=== PATIENT | male | born 1950 | race Caucasian/White ===

== ENCOUNTER 2020-09-20 12:00 | Emergency (ER) | payer MEDICARE ==
--- NOTE | 2020-09-20 12:34 | ER Document Report ---
ED Medical Screen (RME) - General Chief Complaint: Rectal Bleeding Stated Complaint: BLOOD IN STOOL,LIGHTHEADED Time Seen by Provider: 09/20/20 12:22 - HPI Notes: 09/20/20 12:32 70-year-old male who is visiting from [place] to the area presents to the emergency room for concerns of having 4 episodes of bloody stool that started today. Patient reports that his first bowel movement had a tiny bit of blood in it however the last 3 said he defecated pure blood. Denies any black tarry stool. Reports that blood was bright red. Patient denies any history of Crohn's disease or IBS. Recently had a colonoscopy 10 days ago in [place]. Patient reports he was recently placed on oral antibiotics, cannot remember the name. Denies any travel outside of the country recently. Denies any fevers or chills, nausea, vomiting, abdominal pain. Reports he did have painless bloody stools. Patient's blood pressure is elevated today, denies any history of hypertension, states the last couple times he went to the doctors his blood pressure was elevated but he was never placed on medication. I have greeted and performed a rapid initial assessment of this patient. A comprehensive ED assessment and evaluation of the patient, analysis of test results and completion of the medical decision making process will be conducted by additional ED providers. PHYSICAL EXAMINATION: GENERAL: Well-appearing, well-nourished and in no acute distress. HEAD: Atraumatic, normocephalic. EYES: Pupils equal round extraocular movements intact, conjunctiva are normal. NECK: Normal range of motion CV: s1, s2 regular LUNGS: No respiratory distress abd: No abdominal tenderness on palpation in all quadrants, no CVA tenderness appreciated bilaterally Musculoskeletal: Normal range of motion NEUROLOGICAL: Normal speech, normal gait. SKIN: Warm, Dry, normal turgor, no rashes or lesions noted. The patient was evaluated during a global COVID-19 pandemic and that diagnosis was suspected/considered upon their initial presentation. Their evaluation, treatment and testing was consistent with current guidelines for patients who present with complaints or symptoms and may be related to COVID-19. - Related Data Allergies/Adverse Reactions: No Known Allergies Allergy (Verified 09/20/20 12:18) Home Medications: simvistatin, citalopram, omeprazole,famotidine Past Medical History - Social History Frequency of alcohol use: Heavy Physical Exam - Vital signs Vitals: Temp Pulse Resp BP Pulse Ox 98.4 F 87 18 197/100 H 98 09/20/20 12:08 09/20/20 12:08 09/20/20 12:08 09/20/20 12:08 09/20/20 12:08 Course - Vital Signs Vital signs: Temp Pulse Resp BP Pulse Ox 98.4 F 87 18 197/100 H 98 09/20/20 12:08 09/20/20 12:08 09/20/20 12:08 09/20/20 12:08 09/20/20 12:08
[2020-09-20 13:22] LABS: ABSOLUTE BASOPHILS # (AUTO) 0.1 10^3/uL (0.0-0.2); ABSOLUTE EOSINOPHILS # (AUTO) 0.1 10^3/uL (0.0-0.6); ABSOLUTE LYMPHOCYTES (AUTO) 2.6 10^3/uL (0.5-4.7); ABSOLUTE MONOCYTES (AUTO) 0.7 10^3/uL (0.1-1.4); ABSOLUTE NEUT (AUTO) 6.6 10^3/uL (1.7-8.2); BASOPHILS % (AUTO) 0.8 % (0-2); EOSINOPHILS % (AUTO) 1.1 % (0-6); HEMATOCRIT 48.9 % (37.9-51.0); HEMOGLOBIN 16.8 g/dL (13.5-17.0); LYMPHOCYTES % (AUTO) 25.5 % (13-45); MEAN CORPUSCULAR HEMOGLOBIN 32.4 pg (27.0-33.4); MEAN CORPUSCULAR HGB CONC 34.3 g/dL (32.0-36.0); MEAN CORPUSCULAR VOLUME 94 fl (80-97); PLATELET COUNT 197 10^3/uL (150-450); RED BLOOD COUNT 5.18 10^6/uL (4.35-5.55); RED CELL DISTRIBUTION WIDTH 13.7 % (11.5-14.0); SEGMENTED NEUTROPHILS % (AUTO) 65.6 % (42-78); TOTAL CELLS COUNTED % (AUTO) 100 %
[2020-09-20 13:33] LABS: APPEARANCE,URINE SLIGHTLY-CLOUDY; BILIRUBIN,URINE NEGATIVE (NEGATIVE); CALCIUM OXALATE CRYSTALS,URINE RARE /HPF; GLUCOSE, URINE NEGATIVE (NEGATIVE); KETONES,URINE TRACE mg/dL (NEGATIVE); LEUKOCYTE ESTERASE,URINE MODERATE (NEGATIVE); NITRITE,URINE NEGATIVE (NEGATIVE); PROTEIN,URINE NEGATIVE (NEGATIVE); URINE SPECIFIC GRAVITY 1.025
[2020-09-20 13:35] LABS: COLOR,URINE YELLOW
[2020-09-20 13:47] LABS: ALBUMIN 3.8 g/dL (3.5-5.0); ALKALINE PHOSPHATASE 53 U/L (38-126); ANION GAP 7 (5-19); ASPARTATE AMINO TRANSFERASE 44 U/L (17-59); BILIRUBIN,DIRECT 0.3 mg/dL (0.0-0.4); BILIRUBIN,TOTAL 0.7 mg/dL (0.2-1.3); BLOOD UREA NITROGEN 17 mg/dL (7-20); CALCIUM 9.2 mg/dL (8.4-10.2); CARBON DIOXIDE 30 mmol/L (22-30); CHLORIDE 104 mmol/L (98-107); GLUCOSE 95 mg/dL (75-110); POTASSIUM 4.4 mmol/L (3.6-5.0); TOTAL PROTEIN 6.7 g/dL (6.3-8.2)
[2020-09-20] MEDS ORDERED: NORMAL SALINE 1000 ML 1,000 ML IV ONE (16:40)
--- NOTE | 2020-09-20 16:40 | ER Document Report ---
ED General - General Chief Complaint: Rectal Bleeding Stated Complaint: BLOOD IN STOOL,LIGHTHEADED Time Seen by Provider: 09/20/20 12:22 - HPI Notes: Patient is a 70-year-old male who presents with rectal bleeding. Patient states he had a colonoscopy that was done routinely 10 days ago. He has not heard the results of this yet. He is visiting from out of town. He states that 3 days after the colonoscopy he had some slight bleeding in his underwear which resolved. This morning, he had bright red blood in the toilet. He also had bright red blood when he wiped. He denies any pain with wiping. No hemorrhoids. He states he had some abdominal pressure today before he had the bowel movement. He had some bright red blood while in the ER, as well. No active bleeding currently. Currently, he denies any abdominal pain. He has had an inguinal hernia repaired years ago. He denies any fevers or chills. No nausea or vomiting. He mentions some lightheadedness. No chest pain or shortness of breath. - Related Data Allergies/Adverse Reactions: No Known Allergies Allergy (Verified 09/20/20 12:18) Home Medications: simvistatin, citalopram, omeprazole,famotidine Past Medical History - General Information source: Patient, Relative - Social History Smoking Status: Current Every Day Smoker Frequency of alcohol use: Heavy Family History: Reviewed & Not Pertinent Patient has homicidal ideation: No - Past Medical History Cardiac Medical History: Reports: Hx Hypertension Past Surgical History: Reports: Hx Abdominal Surgery - hernia approx 40yr ago Review of Systems - Review of Systems Notes: CONSTITUTIONAL: No fever, fatigue or weight loss. SKIN: No rash. HENT: No congestion, ear pain, or sore throat. CARDIOVASCULAR: No chest pain or edema. RESPIRATORY: No cough, shortness of breath, congestion, or wheezing. GASTROINTESTINAL: No nausea or vomiting. Lower abdominal pain which resolved. Rectal bleeding. GENITOURINARY: No dysuria. MUSCULOSKELETAL: No joint pain or swelling. NEUROLOGIC: No seizures. No headache, focal weakness or sensory changes. HEMATOLOGIC: No unusual bruising or bleeding. PSYCHIATRIC: No depression or anxiety. Physical Exam - Vital signs Vitals: Temp Pulse Resp BP Pulse Ox 98.4 F 87 18 197/100 H 98 09/20/20 12:08 09/20/20 12:08 09/20/20 12:08 09/20/20 12:08 09/20/20 12:08 - General General appearance: Appears well In distress: None Notes: VITAL SIGNS: Within normal limits. GENERAL: No acute distress, non-toxic appearance. HEAD: Normal with no signs of head trauma. EYES: Conjunctiva normal, no discharge. EARS: Hearing grossly intact. NOSE: Normal. NECK: Normal range of motion, no tenderness, supple, no lymphadenopathy, No adenopathy, no JVD. CHEST: Clear breath sounds bilaterally. No wheezes, rales, or rhonchi. CARDIAC: Regular rate and rhythm. S1 and S2, without murmurs, gallops, or rubs. VASCULAR: No Edema. ABDOMEN: Normal and soft with no tenderness, no masses or pulsatile masses. Rectal exam performed with nurse special education resource teacher. Hemorrhoids present that are not thrombosed. Nontender to palpation. No active bleeding. MUSCULOSKELETAL: Good range of motion of all major joints. Extremities without clubbing, cyanosis or edema. NEUROLOGICAL: Alert and oriented x 3. No focal sensory or strength deficits. Speech normal. Follows commands appropriately. PSYCHIATRIC: Normal Affect, judgement and mood. SKIN: Normal appearance with no rashes or lesions. Course - Re-evaluation Re-evalutation: 09/20/20 17:09 I will obtain a CT to evaluate for diverticulitis or colitis as well as due to his recent colonoscopy. Patient appears well and in no acute distress. His vitals are stable. 09/20/20 17:[address] scan is concerning for possible active bleeding. He states he had another bloody bowel movement while in the ED. I discussed with the on-call surgeon who will evaluate the patient. 09/20/20 18:52 Surgery evaluated the patient in the ED and was originally going to admit him. The surgeon talked to the patient's surgeon who did the colonoscopy and he was recommended to be transferred to a facility that can do IR and has GI to help stop the bleeding. I talked to the transfer center at [facility] and I am waiting to hear back from them. Surgeon recommended that I start him on maintenance fluids. Patient continues to be in no acute distress. He is in agreement with the plan. Repeat hemoglobin was sent. 09/20/20 21:25 Repeat hemoglobin is stable. I did order him TXA as he had another bloody bowel movement. I discussed with the transfer center at [facility]. He will be transferred to their hospital. The accepting physician is Dr. Claudio. I updated the patient on the plan. He is very agreeable to this. 09/20/20 21:27 Currently awaiting transport, patient will be signed out to Dr. Goss for further management. - Vital Signs Vital signs: Temp Pulse Resp BP Pulse Ox 99.3 F 100 14 156/88 H 97 09/20/20 18:31 09/20/20 16:33 09/20/20 19:44 09/20/20 19:44 09/20/20 19:44 - Laboratory Results Result Diagrams: 09/20/20 18:30 09/20/20 13:00 Laboratory Results Interpreted: 09/20/20 09/20/20 13:00 13:00 ALT 51 H Urine Ketones TRACE H Urine Urobilinogen 2.0 H Ur Leukocyte Esterase MODERATE H Critical Laboratory Results Reviewed: No Critical Results - Radiology Results Critical Radiology Results Reviewed: No Critical Results - EKG Interpretation by Me EKG shows normal: Sinus rhythm Rate: Normal Rhythm: NSR When compared to previous EKG there are: Previous EKG unavailable Discharge - Discharge Clinical Impression: GI bleed Qualifiers: GI bleed type/associated pathology: unspecified gastrointestinal hemorrhage type Qualified Code(s): K92.2 - Gastrointestinal hemorrhage, unspecified Condition: Stable Disposition: [facility]
--- NOTE | 2020-09-20 17:38 | RADIOLOGY REPORT (SQ) ---
EXAM DESCRIPTION: CT ABD/PELVIS WITH IV ONLY IMAGES COMPLETED DATE/TIME: 09/20/2020 5:00 pm REASON FOR STUDY: lower abdominal pain, rectal bleeding COMPARISON: None. TECHNIQUE: CT scan of the abdomen and pelvis performed using helical scanning technique with dynamic intravenous contrast injection. No oral contrast. Images reviewed with lung, soft tissue, and bone windows. Reconstructed coronal and sagittal MPR images reviewed. Delayed images for evaluation of the urinary system also acquired. All images stored on PACS. All CT scanners at this facility use dose modulation, iterative reconstruction, and/or weight based d osing when appropriate to reduce radiation dose to as low as reasonably achievable (ALARA). [facility]: Dose Right [facility]: CareDose [facility]: Dose Right [facility]: Teradose 4D [facility]: Vinveli CONTRAST TYPE AND DOSE: contrast/concentration: Isovue 350.00 mmol/ml; Total Contrast Delivered: 100 .0 ml; Total Saline Delivered: 72.0 ml RENAL FUNCTION: Creatinine - 1.02 BUN=17 RADIATION DOSE: CT Rad equipment meets quality standard of care and radiation dose reduction techniq ues were employed. CTDIvol: 12.8 - 16.1 mGy. DLP: 1643 mGy-cm.. LIMITATIONS: None. FINDINGS: LOWER CHEST: A 9-10 mm right middle lobe nodule with small eccentric area of calcificatio n may represent granuloma or other benign entity. LIVER: Fatty liver. Hepatomegaly. No dilated ducts. The hepatic and portal veins are patent. SPLEEN: Normal size. No focal lesions. PANCREAS: No masses. No significant calcifications. No adjacent inflammation or peripancreatic fluid collections. Pancreatic duct not dilated. GALLBLADDER: No identified stones by CT criteria. No inflammatory changes to suggest cholecystitis. ADRENAL GLANDS: No significant masses or asymmetry. RIGHT KIDNEY AND URETER: No solid masses. No significant calcifications. No hydronephrosis or hyd roureter. LEFT KIDNEY AND URETER: Small to characterize left renal lesion. No significant calcifications. No hydronephrosis or hydroureter. AORTA AND VESSELS: Atherosclerotic changes involving the abdominal aorta. The distal abdominal aort a is ectatic in appearance. No dissection. Renal arteries, SMA, celiac without stenosis. RETROPERITONEUM: No retroperitoneal adenopathy, hemorrhage or masses. BOWEL AND PERITONEAL CAVITY: Hyperdense material is identified within the region of the hepatic flex ure on the post contrast images. These findings raise the question of possible active gastrointestin al bleeding. Two opaque densities also noted. No free fluid. APPENDIX: Normal. PELVIS: The prostate gland measures 5.5 cm in diameter. Prostatic concretions. No free fluid. Mil d diffuse thickening of the urinary bladder wall. ABDOMINAL WALL: Bilateral fat containing inguinal hernias. BONES: No significant or acute findings. OTHER: No other significant finding. IMPRESSION: 1. On the post contrast images, hyperdense material within the region of the hepatic fl exure raising the question of possible gastrointestinal active bleeding. Two linear opaque densities also noted in this area. Any prior history of surgery? 2. Fatty liver. hepatomegaly. 3. Prostate gland enlargement. 4. Additional findings as above. TECHNICAL DOCUMENTATION: JOB ID: [id number] Quality ID # [id number]: Final reports with documentation of one or more dose reduction techniques (e.g., Au tomated exposure control, adjustment of the mA and/or kV according to patient size, use of iterative reconstruction technique) 2010 [employer]- All Rights Reserved Reading location - IP/workstation name: [email or web address]
--- NOTE | 2020-09-20 18:52 | RADIOLOGY REPORT (SQ) ---
EXAM DESCRIPTION: CHEST SINGLE VIEW IMAGES COMPLETED DATE/TIME: 09/20/2020 6:14 pm REASON FOR STUDY: pre op COMPARISON: None. EXAM PARAMETERS: NUMBER OF VIEWS: One view. TECHNIQUE: Single frontal radiographic view of the chest acquired. RADIATION DOSE: NA LIMITATIONS: None. FINDINGS: LUNGS AND PLEURA: No opacities, masses or pneumothorax. No pleural effusion. MEDIASTINUM AND HILAR STRUCTURES: No masses. Contour normal. HEART AND VASCULAR STRUCTURES: Heart normal in size. Normal vasculature. BONES: No acute findings. HARDWARE: None in the chest. OTHER: No other significant finding. IMPRESSION: NO ACUTE RADIOGRAPHIC FINDING IN THE CHEST. TECHNICAL DOCUMENTATION: JOB ID: [id number] 2010 [employer]- All Rights Reserved Reading location - IP/workstation name: [email or web address]
[2020-09-20 19:13] LABS: ABSOLUTE BASOPHILS # (AUTO) 0.1 10^3/uL (0.0-0.2); ABSOLUTE EOSINOPHILS # (AUTO) 0.1 10^3/uL (0.0-0.6); ABSOLUTE LYMPHOCYTES (AUTO) 2.6 10^3/uL (0.5-4.7); ABSOLUTE MONOCYTES (AUTO) 0.5 10^3/uL (0.1-1.4); ABSOLUTE NEUT (AUTO) 6.2 10^3/uL (1.7-8.2); BASOPHILS % (AUTO) 0.6 % (0-2); EOSINOPHILS % (AUTO) 1.4 % (0-6); HEMATOCRIT 44.6 % (37.9-51.0); HEMOGLOBIN 15.1 g/dL (13.5-17.0); LYMPHOCYTES % (AUTO) 27.4 % (13-45); MEAN CORPUSCULAR HGB CONC 33.8 g/dL (32.0-36.0); MEAN CORPUSCULAR VOLUME 95 fl (80-97); PLATELET COUNT 181 10^3/uL (150-450); RED BLOOD COUNT 4.71 10^6/uL (4.35-5.55); RED CELL DISTRIBUTION WIDTH 13.4 % (11.5-14.0); SEGMENTED NEUTROPHILS % (AUTO) 65.6 % (42-78); TOTAL CELLS COUNTED % (AUTO) 100 %; WHITE BLOOD COUNT 9.4 10^3/uL (4.0-10.5)
[2020-09-20] MEDS ORDERED: TRANEXAMIC ACID INJ/PF 1,000 MG/10 ML SDV IV ONE (19:30)
[2020-09-20] MEDS ORDERED: POTASSI CL 20 MEQ/1/2NS 1L 20 MEQ/1,000 ML RTUINJ IV ONE (19:45)
[2020-09-20 19:51] VITALS: BP 156/88
[2020-09-20 19:59] LABS: INTERNATIONAL RATION (INR) 0.87; PROTHROMBIN TIME 12.1 SEC (11.4-15.4)
--- NOTE | 2020-09-20 21:19 | EKG REPORT ---
SEVERITY:- BORDERLINE ECG - SINUS RHYTHM PROBABLE LEFT ATRIAL ABNORMALITY : Confirmed by: Maximiliano Jackson MD 20-Sep-2020 21:18:06
== END 2020-09-20 21:50 | disposition short-term general hospital (02) ==
LOC: ER 12:00
DX: K92.2 Gastrointestinal hemorrhage, unspecified (principal); F17.200 Nicotine dependence, unspecified, uncomplicated; I10 Essential (primary) hypertension; Z20.828 Contact with and (suspected) exposure to other viral communicable diseases
CPT/HCPCS: 93005; 99285; 96360; 96361; 86900; 86901; 36415; 87045; 87205; 86850; 83690; 85025; 85610; 80053; 81001; 84484; 71045; 74177; 93010; U0003; J3480; J7030; J3490; C9803; 87635